=== PATIENT | male | born 1970 ===

== ENCOUNTER 2025-07-17 08:49 | Outpatient (CLI) | payer BC, SELFPAY | END 2025-07-17 08:50 | disposition home or self-care (01) | LOC: NFLDREF 07-18 10:47 | PROVIDERS: Visit Provider Family Medicine | DX: Z00.00 Encounter for general adult medical examination without abnormal findings (principal); Z13.220 Encounter for screening for lipoid disorders; Z12.5 Encounter for screening for malignant neoplasm of prostate | CPT/HCPCS: 80053; 80061; G0103 ==

== ENCOUNTER 2025-07-19 10:13 | Outpatient (CLI) | payer BC, SELFPAY | END 2025-07-19 10:14 | disposition home or self-care (01) | LOC: FRMREF 10:13 | PROVIDERS: PCP Family Medicine; Visit Provider Family Medicine | DX: E11.9 Type 2 diabetes mellitus without complications (principal) | CPT/HCPCS: 82043; 82570 ==

== ENCOUNTER 2025-10-18 08:40 | Outpatient (CLI) | payer BC, SELFPAY | END 2025-10-18 08:41 | disposition home or self-care (01) | LOC: FRMREF 08:40 | PROVIDERS: PCP Family Medicine; Visit Provider Family Medicine | DX: E11.9 Type 2 diabetes mellitus without complications (principal); I10 Essential (primary) hypertension | CPT/HCPCS: 80048; 80076; 82043; 82570 ==